=== PATIENT | male | born 1945 | race Two or more races ===

== ENCOUNTER 2023-04-16 12:59 | Inpatient (IN) | payer OTHER ==
[~2023-04-16] VITALS: Ht 180.3 cm; Wt 72.6 kg
[2023-04-17] MEDS ORDERED: ALTACE10 MG PO (13:37)
[2023-04-17] MEDS ORDERED: VITAMIN B122500 MCG PO (13:38)
[2023-04-17] MEDS ORDERED: MAXIMUM D3325 MCG PO (13:38)
[2023-04-24] MEDS ORDERED: LOTRIMIN AF150 GM (15:53)
[2023-04-24] MEDS ORDERED: VITAMIN B-121000 MC2 (15:53)
[2023-04-24] MEDS ORDERED: AMLODIPINE-BEN1 EAC3 (15:53)
[2023-04-24] MEDS ORDERED: QC TUSSIN DM L118 ML (15:53)
[2023-04-27] MEDS ORDERED: GABAPENTIN300 MG PO (16:41)
[2023-04-27] MEDS ORDERED: HYOSCYAMINE0.125 M1 SL (16:41)
[2023-04-27] MEDS ORDERED: INTESTINEX680 M1 PO (16:42)
== END 2023-04-27 20:18 | disposition home or self-care (01) | DRG 330 ==
LOC: SURH 04-23 10:07 → O/R 04-23 10:07 → SURH 04-23 12:00
PROVIDERS: ADMIT Surgery; ATTEND Surgery
PROC: 0DBP4ZZ Excision of Rectum, Percutaneous Endoscopic Approach (ICD-10-PCS; 2023-04-23)
PROC: 07BC4ZZ Excision of Pelvis Lymphatic, Percutaneous Endoscopic Approach (ICD-10-PCS; 2023-04-23)
PROC: 0DJD8ZZ Inspection of Lower Intestinal Tract, Via Natural or Artificial Opening Endoscopic (ICD-10-PCS; 2023-04-23)
PROC: 0DTN4ZZ Resection of Sigmoid Colon, Percutaneous Endoscopic Approach (ICD-10-PCS; principal; 2023-04-23 13:00)
DX: C18.7 Malignant neoplasm of sigmoid colon (principal); K62.5 Hemorrhage of anus and rectum; R59.0 Localized enlarged lymph nodes